=== PATIENT | male | born 1960 | race Caucasian/White ===

== ENCOUNTER 2021-03-20 10:51 | Emergency (ER) | payer BC, SELFPAY ==
[2021-03-20] VITALS (15 sets, daily range): BP systolic 127–167; BP diastolic 75–91; PULSE 48–59; RESP 12–22; TEMP 36.6; O2SAT 99–100
--- NOTE | 2021-03-20 10:45 | RT.EKG_ITS ---
APPROVED REPORT Exam: Resting ECG Reason for Exam: chest pain Patient Location: E HR:53 bpm ECG Measurements Heart Rate 53 AXIS TX 170 P 74 QRSd 105 QRS 3 QT 455 T 30 QTc 426 Conclusion Sinus bradycardia...rate< [address] elevation
--- NOTE | 2021-03-20 10:55 | ED.GENADUL_ITS ---
Discharge Plan Disposition Patient Disposition: HOME Condition: Stable Discharge Details Clinical Impression: Chest pain Primary Care Provider: Unknown,Unknown ED Provider: Mahendra Sampson Home Meds and New Rx's Prescriptions: Continued magnesium 500 mg Tablet 500 mg PO DAILY RF: 0 ascorbic acid (vitamin C) [Vitamin C] 500 mg Tablet 500 mg PO DAILY RF: 0 Fish Oil 100-160-1,000 mg Capsule 1 cap PO DAILY RF: 0 Probiotic 3 billion cell Capsule 1 mmu cells PO DAILY RF: 0 citicoline 500 mg Capsule 500 mg PO DAILY RF: 0 Discharge Instructions Instructions: Chest Pain (ED) Additional Instructions: Your evaluation here in the ER has been unremarkable for obvious emergent process. I have placed you on the care management with to help expedite outpatient follow-up for your symptoms and to establish local care. Please watch for new or worsening symptoms and return to the ER for any concerns. Discharge Data Discharge Date/Time-TO BE ENTERED AT DEPARTURE: 03/20/21 12:40 Medical Decision Making This is a 61-year-old gentleman, denies significant past medical history, reports left anterior and lateral chest wall discomfort that began upon awakening around 530 this morning. He reports taking a deep breath makes his symptoms slightly worse, nothing makes them better. He had a very similar episode approximately 1 year ago in [place] and at that time he had a negative cardiac work-up including a stress test. Clinically he appears well, nontoxic, no reproducible chest wall discomfort. Pulse was in the 50s, slightly hypertensive at 167/91, respirations 17, afebrile, O2 sat 99 percent on room air. Low suspicion for ACS but given his presentation will give full dose aspirin and obtain a cardiac work-up including a D-dimer although low suspicion for PE as well. Will only obtain a single troponin and EKG as his symptoms have been present for over 3 hours. Patient does admit that his symptoms began last year when he was eating a large amount of cheese, yesterday he ate [employer] which she does not typically consume, wonders if there is a GI component to this. Initial laboratory values are unremarkable for any emergent process. No leukocytosis or anemia. Platelet count is unremarkable. D-dimer negative. Will not pursue CTA. Sodium 143 potassium 4.1 creatinine 0.7 with a GFR greater than 60. Glucose 93 calcium 8.8 magnesium 2.0 troponin less than 0.05. Chest x-ray unremarkable. Patient is resting comfortably in the ER stretcher, reports that he continues to feel the subtle aching. Will provide a single dose of 30 IV Toradol and reassess. We discussed his benign work-up. Patient is in the process of building a house here moving to the area. Will place him on the care management list to help expedite outpatient primary care follow-up. We discussed that potential referral to GI and/or cardiology may be indicated if symptoms are to persist. Patient has no additional questions or concerns and is comfortable discharge. Strict discharge and return precautions provided. This documentation was generated using [employer] system, please disregard any oddities of phrase or misspellings. Imaging Data Radiologic Study: Attestation: I personally reviewed and interpreted this imaging study as rylee morillo: Imaging: X-Ray Radiologist's impression: PROCEDURE INFORMATION: Exam: XR Chest Exam date and time: 03/20/2021 11:03 AM Age: 61 years old Clinical indication: Pain; Left-sided TECHNIQUE: Imaging protocol: XR of the chest. Views: 2 views. COMPARISON: No relevant prior studies available. FINDINGS: Lungs: Unremarkable. No consolidation. Pleural spaces: Unremarkable. No pleural effusion. No pneumothorax. Heart/Mediastinum: Unremarkable. No cardiomegaly. Bones/joints: Unremarkable. IMPRESSION: No acute findings. Lab Data Lab results reviewed: Yes I reviewed the patient's lab results. Labs: Laboratory Tests Range/Units 03/20/21 03/20/21 03/20/21 11:08 11:08 11:08 WBC (4.4-10.8) 10^3/uL 7.34 RBC (4.36-5.78) 10^6/uL 5.24 Hgb (13.5-17.5) g/dL 14.8 Hct (40.0-50.0) % 45.0 MCV (80-95) fL 85.9 MCH (27.0-33.0) pg 28.2 MCHC (32.0-36.0) % 32.9 RDW (11.8-14.1) % 12.1 Plt Count (130-400) 10^3/uL 249 MPV (8.0-11.0) fL 8.9 Immature Gran % 0.1 Neutrophils % 62.7 Lymphocytes % 27.5 Monocytes % 7.1 Eosinophils % 2.3 Basophils % 0.3 Nucleated RBC % % 0 Absolute Neutrophils (1.2-6.7) 10^3/uL 4.60 Absolute Lymphocytes (1.2-3.4) 10^3/uL 2.02 Absolute Monocytes (0.1-0.8) 10^3/uL 0.52 Absolute Eosinophils (0.0-0.7) 10^3/uL 0.17 Absolute Basophils (0.0-0.2) 10^3/uL 0.02 PT (9.3-11.0) sec 10.4 INR (0.9-1.1) 1.0 APTT (21.0-27.5) sec 26.7 D-Dimer (<500) ng/mlFEU 266 Sodium (136-145) mmol/L 143 Potassium (3.5-5.1) mmol/L 4.1 Chloride (98-107) mmol/L 105 Carbon Dioxide (21.0-32.0) mmol/L 32.9 H Anion Gap (3-11) mmol/L 5.1 BUN (7-18) mg/dL 13 Creatinine (0.70-1.30) mg/dL 0.7 Estimated GFR/1.73 m2 (mL/min/1.73m2) >= 60.00 Glucose (74-106) mg/dL 93 Calcium (8.5-10.1) mg/dL 8.8 Magnesium (1.8-2.4) mg/dL 2.0 Total Bilirubin (0.2-1.0) mg/dL 0.7 AST (15-37) U/L 26 ALT (16-63) U/L 34 Alkaline Phosphatase (46-116) U/L 51 Troponin I (<0.06) ng/mL < 0.05 Total Protein (6.4-8.2) g/dL 7.7 Albumin (3.4-5.0) g/dL 4.2 ECG Data Attestation: I personally reviewed and interpreted this ECG (s) as follows: Interpretation: Please see official report by Dr. Melchor. Sinus bradycardia, ventricular rate 53. No STEMI. HPI General Mode of arrival: ambulatory . Date/Time Provider Initiated Documentation: 03/20/21 10:53 . Limitations to Documentation: no limitations . Information obtained by: patient . HPI Narrative: This is a 61-year-old gentleman, non-smoker, and no significant past medical history, reporting that he went to bed last night asymptomatic and awoke this morning around 5:30 AM with left anterior and lateral chest discomfort. Patient states that he does physical activity on a regular basis but denies any obvious injury or trauma. He states the pain is a 3 or 4 out of 10, dull, aching, does not radiate. He states he had an extremely similar episode about a year ago when he was living in [place], at that time had a full cardiac work-up including stress test that was normal. Patient does not take any medication for his symptoms. He denies any headache, neck pain, visual changes, shortness of breath, cough, abdominal pain, nausea, vomiting, back pain, numbness, tingling, weakness, pain or swelling in his legs, history of DVT or PE, change of bowel or bladder function. Nothing makes the pain better, taking a deep breath makes the pain slightly worse. Patient does state that 1 year ago when his symptoms initially began he was eating an excessive amount of cheese. Yesterday he ate [employer] which he does not typically eat, wonders if his diet may have some role in his symptoms. Related Data Home Medications Medication Instructions Recorded Confirmed Fish Oil 1 cap PO DAILY 03/20/21 03/20/21 Probiotic 1 mmu cells PO DAILY 03/20/21 03/20/21 ascorbic acid (vitamin C) [Vitamin 500 mg PO DAILY 03/20/21 03/20/21 C] citicoline 500 mg PO DAILY 03/20/21 03/20/21 magnesium 500 mg PO DAILY 03/20/21 03/20/21 Allergies Allergy/AdvReac Type Severity Reaction Status Date / Time No Known Allergies Allergy Unverified 03/20/21 11:03 Review of Systems Constitutional Constitutional: Denies fatigue, Denies fever(s), Denies headache(s) and Denies weakness Eyes Eyes: Denies change in vision ENT Ears, Nose, Mouth, and Throat: Denies headache(s) and Denies neck pain Cardiovascular Cardiovascular: Reports chest pain and Denies dyspnea Respiratory Respiratory: Denies cough and Denies dyspnea Gastrointestinal Gastrointestinal: Denies abdominal pain, Denies nausea and Denies vomiting Musculoskeletal Musculoskeletal: Denies back pain and Denies neck pain Integumentary/Breasts Skin/Breast: Denies rash Neurologic Neurologic: Denies headache(s) and Denies weakness Endocrine Endocrine: Denies fatigue PFSH Active Problem List Chest pain (Acute) Medical History Basal cell carcinoma Squamous cell cancer of scalp and skin of neck Social History Smoking/Tobacco Use Status: Never Smoking risk assessment performed?: Yes Alcohol Intake: current Alcohol Intake frequency: holidays/special occasions only Substance use type: does not use Do you feel safe at home: Yes Do you feel safe in your relationship?: Yes Exam Const General: cooperative, healthy appearing, comfortable and no acute distress Orientation: alert, awake and oriented x3 HENMT Head: normal to inspection, normocephalic and atraumatic Face and sinus: normal facial exam Mouth: moist mucous membranes Eyes General: appearance normal, both eyes and all related structures Conjunctivae: conjunctivae normal Neck Neck: normal visual inspection, full ROM, trachea midline, supple and nontender Chest Chest: normal inspection of the chest and normal palpation of entire chest wall Resp Effort & Inspection: normal respiratory effort and able to speak in complete sentences Auscultation: clear to auscultation bilaterally Cardio Rate: regular rate Rhythm: regular rhythm GI Inspection: normal to inspection Palpation: soft, not firm, no guarding, no pulsatile masses and nontender Auscultation: normal bowel sounds Back/Spine/Pelvis Back: no CVA tenderness and No back tenderness Skin General skin exam: no rashes or lesions noted Neuro General: patient alert, patient awake, patient oriented x3, moves all extremities and no focal motor deficits Cognition: normal cognition Speech: speech normal Gait: normal gait Motor: muscle tone normal throughout Sensory Exam: no sensory deficits noted Extrem General: normal to inspection, full ROM, capillary refill normal, no pedal edema and no calf tenderness Psych Appearance: grossly normal Mental Status: mental status grossly normal
--- NOTE | 2021-03-20 11:00 | DI.RAD_ITS ---
Exam(s) XR CHEST 2V PA LATERAL EXAM: XR CHEST 2V PA LATERAL CLINICAL HISTORY: L sided chest pain TECHNIQUE: 2D digital imaging was performed of the chest. Two images were obtained. PA and lateral views were obtained. COMPARISON: No exams were available for comparison FINDINGS: MEDIASTINUM: Normal. HEART: Normal. PULMONARY VASCULATURE: Normal. LUNGS: Clear. PLEURAL SPACE: No pleural effusion or pneumothorax. BONE:Within normal limits for the patient's age. OTHER FINDINGS:Normal. IMPRESSION: No acute pulmonary findings. DATA REPOSITORY: RADIATION DOSE DELIVERED:
[2021-03-20 11:11] LABS: Abs Immature Grans 0.01 10^3/uL (0.0-0.06); Absolute Basophil Count 0.02 10^3/uL (0.0-0.2); Absolute Eosinophil Count 0.17 10^3/uL (0.0-0.7); Absolute Lymphocyte Count 2.02 10^3/uL (1.2-3.4); Absolute Monocyte Count 0.52 10^3/uL (0.1-0.8); Basophils % 0.3; Eosinophils % 2.3; HGB 14.8 g/dL (13.5-17.5); Immature Grans % 0.1; Lymphocytes % 27.5; MCH 28.2 pg (27.0-33.0); MCHC 32.9 % (32.0-36.0); MCV 85.9 fL (80-95); MPV 8.9 fL (8.0-11.0); Monocytes % 7.1; Neutrophils % 62.7; Nucleated RBC 0 %; Platelet Count 249 10^3/uL (130-400); RBC 5.24 10^6/uL (4.36-5.78); RDW 12.1 % (11.8-14.1); RDW-SD 38.4 fL; WBC 7.34 10^3/uL (4.4-10.8)
[2021-03-20] MEDS: Aspirin 81 MG CHEW 324 MG CH (11:11)
[2021-03-20 11:31] LABS: PTT Activated 26.7 sec (21.0-27.5); Prothrombin Time 10.4 sec (9.3-11.0)
--- NOTE | 2021-03-20 11:33 | DI.VRAD_ITS ---
PROCEDURE INFORMATION: Exam: XR Chest Exam date and time: 03/20/2021 11:03 AM Age: 61 years old Clinical indication: Pain; Left-sided TECHNIQUE: Imaging protocol: XR of the chest. Views: 2 views. COMPARISON: No relevant prior studies available. FINDINGS: Lungs: Unremarkable. No consolidation. Pleural spaces: Unremarkable. No pleural effusion. No pneumothorax. Heart/Mediastinum: Unremarkable. No cardiomegaly. Bones/joints: Unremarkable. IMPRESSION: No acute findings. Dictated and Authenticated by: Nereyda Brown MD. Ordering:JEAN PIERRE Mccray MD
[2021-03-20 11:34] LABS: Albumin 4.2 g/dL (3.4-5.0); Alkaline Phosphatase 51 U/L (46-116); BUN 13 mg/dL (7-18); Bilirubin, Total 0.7 mg/dL (0.2-1.0); CREATININE 0.7 mg/dL (0.70-1.30); Calcium 8.8 mg/dL (8.5-10.1); Glucose 93 mg/dL (74-106); Potassium 4.1 mmol/L (3.5-5.1); Sodium 143 mmol/L (136-145); Total Protein 7.7 g/dL (6.4-8.2)
[2021-03-20 11:35] LABS: ALT 34 U/L (16-63); AST 26 U/L (15-37); Anion Gap 5.1 mmol/L (3-11); CO2 32.9 mmol/L (21.0-32.0); Chloride 105 mmol/L (98-107); Troponin I < 0.05 ng/mL (<0.06)
[2021-03-20 11:53] LABS: D-Dimer 266 ng/mlFEU (<500)
[2021-03-20] MEDS: Ketorolac 30 MG/ML VIAL IVP (12:02)
--- NOTE | 2021-03-20 12:28 | NUR.NOTE ---
Nursing Note: Referral given to Care Management to establish care/ chest pain, to be seen within 2 weeks with a PCP Daniela Rodríguez
--- NOTE | 2021-03-22 09:26 | PDOC.ERCMPRO ---
- If Service Date Differs Date of service: 03/22/21 Time of Service: 09:26 Care Management Progress Note Teto is seen in the ED for chest pain. At the request of ED provider, MARISABEL coordinates a referral to Anabel Welsh MD, of [facility], on-call provider, to assist Teto in obtaining a follow up appointment and in establishing care with a PCP.
== END 2021-03-20 12:40 | disposition home or self-care (01) ==
PROVIDERS: Emergency Provider Physician Assistant
DX: R07.81 Pleurodynia (principal)
CPT/HCPCS: 36415; 80053; 93005; 96374; 99285; 71046; 83735; 84484; 85025; 85379; 85610; 85730; 93010; J1885

== ENCOUNTER 2024-01-18 11:49 | Outpatient (CLI) | payer BC, SELFPAY ==
--- NOTE | 2024-01-18 10:00 | DI.RAD_ITS ---
Exam(s) XR HIP RT COMPLETE AP PELVIS EXAM: XR HIP RT COMPLETE AP PELVIS CLINICAL HISTORY: right hip pain. TECHNIQUE: 2D digital imaging was performed. Two views COMPARISON: No exams were available for comparison FINDINGS: BONES: No acute fracture is present. No bony destructive lesion is seen. JOINTS: No dislocation present. The hip joint spaces are maintained. Minimal acetabular spurring. SI joints and pubic symphysis are unremarkable. SOFT TISSUE: Normal. IMPRESSION: No acute abnormality. Minimal degenerative changes. DATA REPOSITORY: RADIATION DOSE DELIVERED:
== END 2024-01-18 11:50 | disposition home or self-care (01) ==
LOC: DIORS 11:49
PROVIDERS: Visit Provider Physician Assistant
DX: M25.551 Pain in right hip (principal)
CPT/HCPCS: 73502

== ENCOUNTER 2024-08-19 11:15 | Outpatient (CLI) | payer BC, SELFPAY ==
--- NOTE | 2024-08-19 10:30 | DI.RAD_ITS ---
Exam(s) XR SHOULDER RT COMPLETE 2+V EXAM: XR SHOULDER RT COMPLETE 2+V CLINICAL HISTORY: RIGHT SHOULDER PAIN. TECHNIQUE: 2D digital imaging was performed. Five views. COMPARISON: No exams were available for comparison FINDINGS: BONES: No acute fracture is present. No bony destructive lesion is seen. JOINTS: No dislocation present. Glenohumeral joint space shows mild narrowing inferiorly. There is mild periarticular spurring. The acromial clavicular joint shows no significant inferior spurring. SOFT TISSUE: Normal. IMPRESSION: Mild degenerative changes. DATA REPOSITORY: RADIATION DOSE DELIVERED:
== END 2024-08-19 11:16 | disposition home or self-care (01) ==
LOC: DIORS 11:15
PROVIDERS: PCP Family Medicine; Visit Provider Student in an Organized Health Care Education/Training Program
DX: M25.511 Pain in right shoulder (principal)
CPT/HCPCS: 73030

== ENCOUNTER 2024-09-10 00:48 | Outpatient (CLI) | payer BC, SELFPAY ==
--- NOTE | 2024-09-10 07:30 | DI.MRI_ITS ---
Exam(s) MR UPPER JOINT RT WO EXAM: MR UPPER JOINT RT WO CLINICAL HISTORY: R SHOULDER PAIN,rt rotator cuff tear. m75.101 TECHNIQUE: Multiplanar multisequence MRI of the shoulder was performed. COMPARISON: CR XR SHOULDER RT COMPLETE 2+V from 08/19/2024 FINDINGS: MARROW:There is no evidence of fracture, Hill-Sachs deformity, nor ominous osseous lesions. GLENOHUMERAL JOINT: There is a minimal amount of increased joint fluid. No large joint effusion. No o bvious loose intra-articular bodies. There is some articular cartilage loss and there is an osteophyt e on the inferior articular surface of the humeral head as well as a degenerative subarticular cysts noted in the inferior aspect of the osseous glenoid which measures 9 x 7 x 6 mm. There is also degene rative subarticular cysts seen in the lateral aspect of the humeral head. ROTATOR CUFF MECHANISM: AC JOINT/ACROMIUM: There are minimal if any significant degenerative changes in the AC joint. No down going osteophytes evident at this level.. There is no evidence of os acromiale. Supraspinatus: There is bursal side partial thickness tearing of the supraspinatus at the foot pad in sertional level. There is no retraction of the musculotendinous junction. There is no fluid in the fischer bacromial-subdeltoid bursa space.. No muscle atrophy. Infraspinatus: Mild insertional tendinitis signal. No full-thickness tear. No atrophy. Teres Minor: Intact. No evidence of tear nor muscle atrophy. Subscapularis/anterior cuff: Intact. No abnormal signal at the level of the multipennate insertional fibers. No significant tear nor atrophy. There is some increased fluid signal in the rotator cuff interval between the superior aspect of the subscapularis and the anterior supraspinatus tendon. BICEPS TENDON: Intact. Nondisplaced. LABRUM: No evidence of paralabral cyst(s). There is degenerative signal in the superior labrum posterior to the biceps insertion site.. This ext ends into the posterior superior labrum. More inferiorly the posterior labrum appears intact. Inferio r labrum appears intact. QUADRILATERAL SPACE: No evidence of mass in the region of the axillary nerve and dorsal circumflex hu meral vessels. Visualized triceps muscle at this level appears unremarkable. IMPRESSION: 1. There are moderate degenerative changes in the glenohumeral joint, as described above. Small amoun t of increased joint fluid. No loose intra-articular bodies evident although there is some mild synov ial thickening evident. Only mild degenerative changes in the AC joint are evident. 2. There is a bursal side partial thickness tear of the supraspinatus at the foot pad insertional lev el. There is some insertional tendinitis signal evident at the infraspinatus level. There are no full -thickness tears. No muscle atrophy. 3. Multilevel degenerative irregularity-surface tearing of the labrum. No evidence of paralabral cyst . No biceps tendon tear nor displacement. DATA REPOSITORY:
--- NOTE | 2024-09-10 16:41 | DI.VRAD_ITS ---
PROCEDURE INFORMATION: Exam: MR Right Upper Extremity Joint Without Contrast; Shoulder Exam date and time: 09/10/2024 2:34 PM Age: 64 years old Clinical indication: Other: R shoulder pain, RT rotator cuff tear. TECHNIQUE: Imaging protocol: Magnetic resonance imaging of the right upper extremity without contrast. Exam focused on the shoulder. COMPARISON: CR XR SHOULDER RT COMPLETE 2+V 08/19/2024 10:48 AM (report not provided) FINDINGS: Bones/joints: There is mild acromioclavicular arthrosis. A very small broad-based osteophyte extends from the undersurface of the acromion. A very small glenohumeral joint effusion is present. There is moderate glenohumeral chondromalacia with mild periarticular osteophyte formation, and mild subcortical degenerative cystic changes are present inferiorly in the glenoid. There are also mild to moderate productive changes along much of the greater tuberosity. Glenoid labrum: Mild heterogeneous signal and thinning of much of the glenoid labrum suggests degeneration and chronic tearing. Bursae: No significant fluid is present in the subacromial, subdeltoid bursa. Supraspinatus tendon: Moderate supraspinatus tendinopathy with thinning of the tendon in association with partial-thickness bursal surface tearing, with some intrasubstance tearing toward the anterior footplate. Infraspinatus tendon: Very mild infraspinatus tendinopathy. Subscapularis tendon: Very mild subscapularis tendinopathy. Teres minor tendon: Unremarkable. No evidence of tear. Tendon of biceps brachii: Intact and in normal position. Glenohumeral ligaments: Unremarkable. Soft tissues: Unremarkable. IMPRESSION: 1. Degenerative changes as described. 2. Rotator cuff tendinopathy without full-thickness tear identified. 3. Very small glenohumeral joint effusion. Dictated and Authenticated by: Teto Woody MD. Orderin Jazmine Morel MD
== END 2024-09-10 01:08 ==
LOC: DI 00:49
PROVIDERS: PCP Family Medicine; Visit Provider Student in an Organized Health Care Education/Training Program
DX: M75.111 Incomplete rotator cuff tear or rupture of right shoulder, not specified as traumatic (principal)
CPT/HCPCS: 73221